=== PATIENT | female | born 1960 | race Hispanic/Latino ===

== ENCOUNTER 2023-05-12 11:01 | Emergency (ER) | payer MEDICAID ==
[~2023-05-12] VITALS: Ht 157.5 cm; Wt 59.0 kg
[2023-05-12 11:56] LABS: BASOPHILS # (AUTO) 0.06 K/uL (0.00-0.20); BASOPHILS % (AUTO) 1.2 % (0.0-5.0); EOSINOPHILS # (AUTO) 0.09 K/uL (0.00-0.70); EOSINOPHILS % (AUTO) 1.8 % (0.0-8.0); HEMATOCRIT 40.2 % (36-48); IMMATURE GRANULOCYTE ABSOLUTE 0.02 K/uL (0-1); LYMPHOCYTES # (AUTO) 1.5 K/uL (1.0-4.8); LYMPHOCYTES % (AUTO) 30.3 % (21.0-51.0); MEAN CORPUSCULAR HEMOGLOBIN 31.4 pg (27.0-33.0); MEAN CORPUSCULAR HGB CONC 33.1 g/dL (32.0-36.0); MEAN CORPUSCULAR VOLUME 94.8 fL (79-99); MONOCYTES # (AUTO) 0.3 K/uL (0.1-1.0); MONOCYTES % (AUTO) 5.3 % (3.0-13.0); NEUTROPHILS # (AUTO) 3.1 K/uL (1.8-7.7); PLATELET COUNT (AUTO) 304 K/uL (130-400); RED BLOOD CELL COUNT(AUTO) 4.24 MIL/uL (4.00-5.50); RED CELL DISTRIBUTION WIDTH 12.7 % (11.0-15.5); WHITE BLOOD COUNT (AUTO) 5.1 K/uL (4.8-10.8)
[2023-05-12] MEDS ORDERED: ASPIRIN 325MG TAB PO ONE (12:00)
[2023-05-12 12:10] LABS: CREATININE 0.8 mg/dL (0.5-1.5); POTASSIUM 3.9 mmol/L (3.5-5.1)
[2023-05-12 12:14] LABS: ALBUMIN 3.9 g/dL (3.5-5.0); BILIRUBIN,TOTAL 0.3 mg/dL (0.2-1.0); TOTAL PROTEIN, SERUM 6.6 g/dL (6.0-8.3)
[2023-05-12] MEDS ORDERED: ONDANSETRON 4MG INJ IVP ONE (13:00)
[2023-05-12] MEDS ORDERED: MORPHINE 2 MG SYG IVP ONE (13:00)
[2023-05-12 15:05] VITALS: BP 118/95; PULSE 76; RESP 18; O2SAT 97
== END 2023-05-12 15:15 | disposition home or self-care (01) ==
LOC: EDH 11:01
DX: R07.89 Other chest pain (principal); R12 Heartburn; I10 Essential (primary) hypertension; F41.9 Anxiety disorder, unspecified; F31.9 Bipolar disorder, unspecified; F17.200 Nicotine dependence, unspecified, uncomplicated
CPT/HCPCS: 99285; 96374; 71045; 96375; 84484 ×2; 80053; 85025; 36415; 93005 ×2; J2270; J2405

== ENCOUNTER 2023-07-29 23:14 | Emergency (ER) | payer MEDICAID ==
[~2023-07-29] VITALS: Ht 162.6 cm; Wt 74.8 kg
[2023-07-29 23:32] LABS: BASOPHILS # (AUTO) 0.05 K/uL (0.00-0.20); BASOPHILS % (AUTO) 0.8 % (0.0-5.0); EOSINOPHILS # (AUTO) 0.13 K/uL (0.00-0.70); EOSINOPHILS % (AUTO) 2.1 % (0.0-8.0); HEMATOCRIT 38.3 % (36-48); IMMATURE GRANULOCYTE ABSOLUTE 0.05 K/uL (0-1); LYMPHOCYTES # (AUTO) 2.3 K/uL (1.0-4.8); MEAN CORPUSCULAR HEMOGLOBIN 31.5 pg (27.0-33.0); MEAN CORPUSCULAR HGB CONC 32.9 g/dL (32.0-36.0); MEAN CORPUSCULAR VOLUME 95.8 fL (79-99); MONOCYTES # (AUTO) 0.3 K/uL (0.1-1.0); MONOCYTES % (AUTO) 5.2 % (3.0-13.0); NEUTROPHILS # (AUTO) 3.4 K/uL (1.8-7.7); NEUTROPHILS % (AUTO) 54.1 % (40.0-77.0); PLATELET COUNT (AUTO) 256 K/uL (130-400); RED CELL DISTRIBUTION WIDTH 12.6 % (11.0-15.5); WHITE BLOOD COUNT (AUTO) 6.3 K/uL (4.8-10.8)
[2023-07-29 23:42] LABS: CREATININE 0.9 mg/dL (0.5-1.5); POTASSIUM 3.9 mmol/L (3.5-5.1)
[2023-07-29 23:52] LABS: ALBUMIN 3.7 g/dL (3.5-5.0); BILIRUBIN,TOTAL 0.4 mg/dL (0.2-1.0); TOTAL PROTEIN, SERUM 6.3 g/dL (6.0-8.3)
[2023-07-30] MEDS ORDERED: MORPHINE 2 MG SYG IVP ONE (01:30)
[2023-07-30] MEDS ORDERED: ONDANSETRON 4MG INJ IVP ONE (01:30)
[2023-07-30 01:57] VITALS: BP 120/60; PULSE 78; RESP 17; O2SAT 97
== END 2023-07-30 01:58 | disposition home or self-care (01) ==
LOC: EDH 23:14
DX: K80.20 Calculus of gallbladder without cholecystitis without obstruction (principal); I10 Essential (primary) hypertension; M19.90 Unspecified osteoarthritis, unspecified site; F20.9 Schizophrenia, unspecified; F41.9 Anxiety disorder, unspecified; F31.9 Bipolar disorder, unspecified
CPT/HCPCS: 99285; 71045; 84484; 80053; 83690; 85025; 36415; 93005; 96374; 76705; 96375; J2270; J2405

== ENCOUNTER 2023-11-08 05:55 | Day surgery (SDC) | payer MEDICAID ==
[2023-11-04 09:55] LABS: BASOPHILS # (AUTO) 0.11 K/uL (0.00-0.20); BASOPHILS % (AUTO) 1.9 % (0.0-5.0); EOSINOPHILS # (AUTO) 0.02 K/uL (0.00-0.70); EOSINOPHILS % (AUTO) 0.3 % (0.0-8.0); HEMATOCRIT 44.2 % (36-48); IMMATURE GRANULOCYTE ABSOLUTE 0.04 K/uL (0-1); LYMPHOCYTES # (AUTO) 1.4 K/uL (1.0-4.8); LYMPHOCYTES % (AUTO) 24.4 % (21.0-51.0); MEAN CORPUSCULAR HEMOGLOBIN 31.4 pg (27.0-33.0); MEAN CORPUSCULAR HGB CONC 31.9 g/dL (32.0-36.0); MEAN CORPUSCULAR VOLUME 98.4 fL (79-99); MONOCYTES # (AUTO) 0.4 K/uL (0.1-1.0); NEUTROPHILS # (AUTO) 3.8 K/uL (1.8-7.7); NEUTROPHILS % (AUTO) 65.7 % (40.0-77.0); PLATELET COUNT (AUTO) 329 K/uL (130-400); RED BLOOD CELL COUNT(AUTO) 4.49 MIL/uL (4.00-5.50); RED CELL DISTRIBUTION WIDTH 12.6 % (11.0-15.5); WHITE BLOOD COUNT (AUTO) 5.8 K/uL (4.8-10.8)
[2023-11-04 10:01] VITALS: BP 123/75; PULSE 102; RESP 19
[2023-11-04 10:04] LABS: INR <= 0.93 (0.85-1.15); PROTHROMBIN TIME 10.3 SEC (9.6-11.6)
[2023-11-04 10:05] LABS: PARTIAL THROMBOPLASTIN TIME 26.9 SEC (26.3-35.5); POTASSIUM 5.6 mmol/L (3.5-5.1)
[~2023-11-08] VITALS: Ht 162.6 cm; Wt 78.5 kg
[2023-11-08] VITALS (14 sets, daily range): BP systolic 123–156; BP diastolic 49–96; PULSE 73–92; RESP 12–20
[~2023-11-08 05:55] MED LIST: BUPR450T3 PO; BUSP30TA2 PO; DEUT12TA PO; DOCU100C33 PO; ESCI-8 PO; HYDR-4068 PO; HYDR200T75 PO; LORA10TA7 PO; MAGN400T25 PO; METH-811 PO; MIDO5TAB4 PO; NAPR-1023 PO; OMEP-420 PO; QUET400T13 PO
[2023-11-08] MEDS: CEFAZOLIN SODIUM 2 GM VIAL ONE (06:49)
[2023-11-08] MEDS: LACTATED RINGERS 1000ML 1,000 ML IV ONE (06:49)
[2023-11-08] MEDS ORDERED: MIDAZOLAM HCL 1 MG/ML 2ML VIAL ONE (07:10)
[2023-11-08] MEDS ORDERED: FENTANYL CITRATE PF 50 MCG/1 ML 2ML VIAL ONE (07:11)
[2023-11-08] MEDS ORDERED: PROPOFOL 10 MG/ML 20ML VIAL IV ONE (07:11)
[2023-11-08] MEDS ORDERED: SUCCINYLCHOLINE CHLORIDE 20 MG/ML 10 ML VIAL ONE (07:11)
[2023-11-08] MEDS ORDERED: ROCURONIUM BROMIDE 10MG/1ML 5ML VL ONE (07:12)
[2023-11-08] MEDS ORDERED: BUPIVACAINE/PF 0.5% 30ML VIAL ONE (07:19)
[2023-11-08] MEDS: CEFAZOLIN SODIUM 2 GM VIAL IVPB ONE (07:32)
[2023-11-08] MEDS ORDERED: IOHEXOL-350 50ML VIAL IV ONE (08:13)
[2023-11-08] MEDS ORDERED: GLYCOPYRROLATE 0.2 MG/ML 5 ML VIAL ONE (08:19)
[2023-11-08] MEDS ORDERED: NEOSTIGMINE METHYLSULFATE 1MG/ML IV ONE (08:19)
[2023-11-08] MEDS ORDERED: DOCU-116 PO (08:30)
[2023-11-08] MEDS ORDERED: METH-662 PO (08:30)
[2023-11-08] MEDS ORDERED: TRAM50TA4 PO (08:30)
[2023-11-08] MEDS ORDERED: GABA-529 PO (08:30)
[2023-11-08] MEDS: ONDANSETRON 4MG INJ ONE (08:53)
[2023-11-08] MEDS: ACETAMINOPHEN 1,000 MG/100 ML VIAL IV ONE (08:54)
[2023-11-08] MEDS: MEPERIDINE-PF 25 MG/ML SYG ONE ×2 (08:54→08:59)
[2023-11-08] MEDS: KETOROLAC 30MG VIAL (30MG/ML) ONE (08:54)
== END 2023-11-08 11:06 | disposition home or self-care (01) ==
LOC: DAH 05:55
PROVIDERS: ATTEND Surgery
DX: K80.10 Calculus of gallbladder with chronic cholecystitis without obstruction (principal); F32.A Depression, unspecified; E66.9 Obesity, unspecified; K21.9 Gastro-esophageal reflux disease without esophagitis; Z79.899 Other long term (current) drug therapy; Z79.01 Long term (current) use of anticoagulants; Z80.0 Family history of malignant neoplasm of digestive organs; Z68.29 Body mass index [BMI] 29.0-29.9, adult
CPT/HCPCS: 80048; 85025; 85610; 85730; 36415; 47563; 88304; 74300; A6260; A4663; J7030; A4215 ×2; C1758; J7120; J3010; J0330; J3490 ×3; J2250; J2405; J1885; J2710; J0665 ×2; J2175 ×2; Q9967; J0690 ×2; A4649 ×2; A4930; A4223; A4222; A4221; A4600 ×2; 48400; J2704; G0168